=== PATIENT | male | born 1965 | race Caucasian/White ===

== ENCOUNTER 2018-05-08 15:27 | Emergency (ER) | payer BC ==
[~2018-05-08] VITALS: Ht 182.9 cm; Wt 75.7 kg
[2018-05-08 15:31] VITALS: Ht 182.9 cm; Wt 75.7 kg
[2018-05-08 17:51] VITALS: BP 169/99
== END 2018-05-08 17:51 | disposition home or self-care (01) ==
LOC: ED 15:27
DX: S01.81XA Laceration without foreign body of other part of head, initial encounter (principal); W18.39XA Other fall on same level, initial encounter; Y93.89 Activity, other specified; Y92.89 Other specified places as the place of occurrence of the external cause; Y99.8 Other external cause status; G10 Huntington's disease

== ENCOUNTER 2018-05-11 15:47 | Emergency (ER) | payer BC ==
[~2018-05-11] VITALS: Ht 182.9 cm; Wt 70.3 kg
[2018-05-11 16:26] VITALS: BP 111/78; Ht 182.9 cm; Wt 70.3 kg
== END 2018-05-11 17:48 | disposition home or self-care (01) ==
LOC: ED 15:47
DX: S01.81XD Laceration without foreign body of other part of head, subsequent encounter (principal); W18.30XD Fall on same level, unspecified, subsequent encounter